=== PATIENT | male | born 1975 | race African-American/Black ===

== ENCOUNTER 2019-03-16 01:59 | Emergency (ER) | payer SELFPAY ==
[2019-03-16 03:04] LABS: Bacteria/HPF None Seen HPF (None Seen); Bilirubin Negative (Negative); Blood, Urine Trace (Negative); Clarity Clear (Clear); Glucose, Urine (Dipstick) Negative (Negative); Leukocyte Negative (Negative); Nitrite Negative (Negative); Protein, Urine (Dipstick) Negative (Neg-Trace); RBC/HPF 0-3 HPF (0-3); Specific Gravity, Urine 1.025 (1.005-1.030); Squamous Epithelial None Seen HPF (0-3); Urobilinogen 0.2 mg/dL (0.2-1.0); WBC/HPF None Seen HPF (0-3)
== END 2019-03-16 03:20 | disposition home or self-care (01) ==
LOC: NAV ERS 01:59
DX: R31.9 Hematuria, unspecified (principal); F17.210 Nicotine dependence, cigarettes, uncomplicated
CPT/HCPCS: 81003; 81015; 99283

== ENCOUNTER 2021-03-04 03:53 | Emergency (ER) | payer BC, SELFPAY ==
[2021-03-04] MEDS ORDERED: Ketorolac Tromethamine 30 MG/ML VIAL ONE (04:21)
[2021-03-04] MEDS ORDERED: Dexamethasone 4 mg/ml Vial ONE (04:21)
== END 2021-03-04 04:46 | disposition home or self-care (01) ==
LOC: NAV ERS 03:53
DX: M54.40 Lumbago with sciatica, unspecified side (principal); F17.210 Nicotine dependence, cigarettes, uncomplicated
CPT/HCPCS: 96372; 99283; J1100; J1885

== ENCOUNTER 2021-12-18 16:47 | Emergency (ER) | payer BC ==
[2021-12-19 12:28] LABS: SARS-CoV-2 PCR by NAA Not Detected (NotDetected)
== END 2021-12-18 17:56 | disposition home or self-care (01) ==
LOC: NAV ERS 16:47
DX: Z20.822 Contact with and (suspected) exposure to COVID-19 (principal); F17.210 Nicotine dependence, cigarettes, uncomplicated
CPT/HCPCS: 99283; U0003; U0005